=== PATIENT | female | born 1935 | race African-American/Black ===

== ENCOUNTER 2019-02-13 19:32 | Inpatient (IN) | payer MEDICARE, BC ==
[~2019-02-13] VITALS: Ht 160 cm; Wt 57.2 kg
--- NOTE | 2019-02-13 20:35 | NUR ---
Dr. Vail at bedside for MSE.
[2019-02-13] MEDS ORDERED: NITROFURANTOIN/NITROFURAN MAC 100 MG CAPSULE ONE (20:44)
[2019-02-13] MEDS ORDERED: NITROFURANTOIN/NITROFURAN MAC 100 MG CAPSULE PO ONE (20:45)
--- NOTE | 2019-02-13 20:48 | NUR ---
Pt medically cleared by Dr. Vail.
[2019-02-13] MEDS ORDERED: ALPHAGAN 0.2% EACHEYE (21:16)
[2019-02-13] MEDS ORDERED: PRED5DRO24 OP (21:16)
[2019-02-13] MEDS ORDERED: ASPI-605 PO (21:16)
[2019-02-13] MEDS ORDERED: CLOP75TA15 PO (21:16)
[2019-02-13] MEDS ORDERED: OLAN2.5T3 PO ×3 (21:16)
[2019-02-13] MEDS ORDERED: METO50TA7 PO (21:16)
[2019-02-13] MEDS ORDERED: ACET-2154 PO (21:16)
[2019-02-13] MEDS ORDERED: RANO500T3 PO (21:16)
[2019-02-13] MEDS ORDERED: TIMO5SOL11 OP (21:16)
--- NOTE | 2019-02-13 21:25 | NUR ---
Report given to Monae CISSE MHU.
--- NOTE | 2019-02-13 21:45 | NUR ---
Admitting Notes Patient received into care via lulu from ER with sister by her side. Patient is labile and confused, answers to name, but is unable to verbalize where she is, date, year, or [place] president. Patient unable to provide meaningful history, however, sister was able to provide medical and psychological history. Per sister, patient was diagnosed with dementia but has always been cooperative until patient became last year and dementia seemed to worsen. Patient is cooperative with nurse and refrigerator cabinetmaker with regards to changing from regular hospital gown into MHU gown, having diaper changed, having vital signs taken, and blood sugar tested. Patient was placed in bed, with 2 side rails up and locked, and bed alarm activated. Patient's BP is slightly elevated at 160/73, but this can be attributed to move from previous hospital to [facility] and subsequent move from ER to MHU room. Patient did not have any personal belongings when accepted to unit. Sister provided copy of Advanced Directive and states that she has power of pipe stem sawyer, of which she will provide copy. All safety and fall precaution measures are in place. Will continue to monitor patient throughout shift.
[2019-02-13] MEDS ORDERED: MAG HYDROX/AL HYDROX/SIMETH 30 ML LIQUID UDC PO PRN (22:15)
[2019-02-13] MEDS ORDERED: TEMAZEPAM 7.5 MG CAPSULE PO PRN (22:15)
[2019-02-13] MEDS ORDERED: MAGNESIUM HYDROXIDE 30 ML LIQUID UDC PO PRN (22:15)
[2019-02-13] MEDS ORDERED: ACETAMINOPHEN 325 MG TABLET PO PRN (22:15)
[2019-02-13] MEDS ORDERED: BLOOD SUGAR DIAGNOSTIC 1 EACH STRIP VI ONE (22:15)
--- NOTE | 2019-02-14 07:05 | NUR ---
Patient slept 4.30 hr after admitted to MHU with no complaints of pain or discomfort. Patient is labile and confused. Can remember important things about herself, sisters, and , but cannot recall information about her son or grandson. Patient was compliant with all aspects of care and all nursing needs were addressed promptly. Safety and fall precaution measures remain in place.
[2019-02-14 07:59] VITALS: BP 162/74
--- NOTE | 2019-02-14 08:00 | NUR ---
Sitting o gerichair, calm, eating breakfast
--- NOTE | 2019-02-14 11:00 | NUR ---
Ambulated, Participated with PT
[2019-02-14] MEDS: ASPIRIN EC 81 MG TABLET.DR PO SCH (16:08)
[2019-02-14] MEDS: METOPROLOL SUCCINATE XL 50 MG TAB.SR.24H PO SCH (16:09)
[2019-02-14] MEDS: LORAZEPAM 0.5 MG TABLET PO PRN ×2 (16:09→21:08)
--- NOTE | 2019-02-14 16:09 | NUR ---
Patient anxious, confuse. Ativan po given as ordered
[2019-02-14 16:10] VITALS: BP 170/67
[2019-02-14] MEDS: CLOPIDOGREL 75 MG TABLET PO SCH (16:10)
--- NOTE | 2019-02-14 16:36 | NUR ---
Initial discharge plan: Pt lives in her personal home with her two sons and a sister [Lida Marsh; [phone] and son Ronaldo [phone]] at [address],[place] [address]. Pts family is in agreement with this plan. SW will work with pt, pt family, and MD to form an appropriate discharge plan. SW will form a safe and proper discharge plan.
[2019-02-14] MEDS: RANOLAZINE 500 MG TAB.ER.12H PO SCH (16:45)
[2019-02-14] MEDS ORDERED: TIMOLOL MALEATE XE 0.5% OPHT 5 ML BOTTLE OP SCH (17:00)
[2019-02-14] MEDS: OLANZAPINE ZYDIS 5 MG TAB.RAPDIS PO SCH (18:17)
--- NOTE | 2019-02-14 18:54 | NUR ---
Eating dinner, with fair appetite
[2019-02-14] MEDS: DIVALPROEX 125 MG TABLET.DR PO SCH (20:04)
[2019-02-14] MEDS: NITROFURANTOIN/NITROFURAN MAC 100 MG CAPSULE PO SCH (20:04)
--- NOTE | 2019-02-14 20:30 | NUR ---
Assisted patient to restroom and attempted to have her urinate to be able to collect sample however patient declined to sit on the toilet and urinated on diaper.
[2019-02-14 21:00] VITALS: BP 145/61
--- NOTE | 2019-02-15 05:59 | NUR ---
Patient slept a total of 7.15 hours after prn ativan last night. Patient has been compliant with medications. Attended all needs. Ensured safety and comfort. No other untoward events noted.
[2019-02-15 07:30] VITALS: BP 136/54
[2019-02-15] MEDS: CLOPIDOGREL 75 MG TABLET PO SCH (08:25)
[2019-02-15] MEDS: NITROFURANTOIN/NITROFURAN MAC 100 MG CAPSULE PO SCH ×2 (08:25→20:10)
[2019-02-15] MEDS: DIVALPROEX 125 MG TABLET.DR PO SCH ×2 (08:25→20:10)
[2019-02-15] MEDS: ASPIRIN EC 81 MG TABLET.DR PO SCH (08:25)
[2019-02-15] MEDS: METOPROLOL SUCCINATE XL 50 MG TAB.SR.24H PO SCH (08:26)
[2019-02-15] MEDS: RANOLAZINE 500 MG TAB.ER.12H PO SCH ×2 (08:35→16:58)
[2019-02-15] MEDS ORDERED: TIMO5DRO18 EACHEYE (09:29)
--- NOTE | 2019-02-15 10:00 | NUR ---
UP ON THE CHAIR WITH MAX ASSIST OF TWO DUE TO THE FACT THAT PATIENT WAS RESISTING GETTING UP BUT IS COMFORTABLE NOW THAT SHE IS UP ASSISTED NEEDED NEEDED FREQUENT PROMPTS TO TAKE HER MEDICATIONS WILL CONTINUE TO OBSERVE.
[2019-02-15] MEDS: prednisoLONE ACET 1% OPHT DROP 5 ML BOTTLE EACHEYE SCH ×2 (11:49→20:10)
[2019-02-15] MEDS: BRIMONIDINE 0.2% OPHT DROP 10 ML BOTTLE EACHEYE SCH ×2 (11:50→16:59)
[2019-02-15] MEDS: TIMOLOL MALEATE 0.5% OPHT DROP 5 ML BOTTLE EACHEYE SCH ×2 (11:50→16:59)
[2019-02-15 15:18] VITALS: BP 144/70
[2019-02-15] MEDS: OLANZAPINE ZYDIS 5 MG TAB.RAPDIS PO SCH (16:58)
--- NOTE | 2019-02-15 17:37 | NUR ---
DR MAYA HERE AND SEEN PATIENT,PATIENTS FAMILIES SONS ETC HERE AND STATED EAGER TO TAKE HER HOME TODAY BUT DR MAYA STATED PATIENT IS NOT READY TO BE DISCHARGED TODAY MAY BE ON SUNDAY AND SO THEY ARE ACCEPTING THIS DECISION AT THIS TIME.PATIENT REMAINS CONFUSED AND DISORIENTED UNAWARE OF DESTINATION OR NEEDS DIFFICULTY GIVING HER MEDICATIONS ORDERED WILL CONTINUE TO PROVIDE SAFE AND THERAPEUTIC ENVIRONMENT AT ALL TIMES.
--- NOTE | 2019-02-15 18:30 | NUR ---
ASSISTED BACK INTO BED PATIENT IS CONFUSED AND DISORIENTED SOMEWHAT SLEEPY INCONTINENT OF URINE WITH TATIANA CARE MADE COMFORTABLE WILL CONTINUE TO OBSERVE.
[2019-02-15 20:37] VITALS: BP 129/57
[2019-02-16 07:30] VITALS: BP 137/62
[2019-02-16 08:38] LABS: *BLOOD, URINE NEGATIVE (NEGATIVE); *CLARITY,URINE SLIGHTLY CLOUDY (CLEAR); *COLOR,URINE DARK YELLOW (YELLOW); *KETONES,URINE 1+ (NEGATIVE); LEUKOCYTE ESTERASE ,URINE NEGATIVE (NEGATIVE); NITRITE, URINE NEGATIVE (NEGATIVE); UGLUCOSE NEGATIVE (NEGATIVE)
[2019-02-16] MEDS: CLOPIDOGREL 75 MG TABLET PO SCH (08:48)
[2019-02-16] MEDS: ASPIRIN EC 81 MG TABLET.DR PO SCH (08:48)
[2019-02-16] MEDS: DIVALPROEX 125 MG TABLET.DR PO SCH (08:48)
[2019-02-16] MEDS: NITROFURANTOIN/NITROFURAN MAC 100 MG CAPSULE PO SCH (08:48)
[2019-02-16] MEDS: prednisoLONE ACET 1% OPHT DROP 5 ML BOTTLE EACHEYE SCH (08:49)
[2019-02-16] MEDS: RANOLAZINE 500 MG TAB.ER.12H PO SCH (08:49)
[2019-02-16] MEDS: TIMOLOL MALEATE 0.5% OPHT DROP 5 ML BOTTLE EACHEYE SCH (08:49)
[2019-02-16] MEDS: BRIMONIDINE 0.2% OPHT DROP 10 ML BOTTLE EACHEYE SCH (08:50)
[2019-02-16] MEDS: METOPROLOL SUCCINATE XL 50 MG TAB.SR.24H PO SCH (09:06)
[2019-02-16 09:49] LABS: *BILIRUBIN,URIN 1+ (NEGATIVE)
[2019-02-16 09:54] LABS: BACTERIA,URINE FEW /HPF (NONE SEEN); RBC,URINE 0-3 /HPF (0-3); SQUAMOUS EPITHELIAL CELL,UR FEW /HPF (NONE SEEN); WBC,URINE 20-50 /HPF (0-3)
--- NOTE | 2019-02-16 10:20 | NUR ---
NOTIFIED DR. MAYA THAT THE HOLD WILL END TODAY AT 1650 AND THAT THE FAMILY WOULD LIKE TO SPEAK TO THE DOCTOR. STATED THAT HE WILL BE IN THE HOSPITAL TO SEE THE PATIENT BEFORE THE HOLD WILL END.
[2019-02-16 16:12] VITALS: BP 137/67
[2019-02-16] MEDS ORDERED: chlorproMAZINE 50 MG/2 ML AMPUL IM ONE (17:15)
[2019-02-16] MEDS ORDERED: LORAZEPAM 2 MG/1 ML VIAL IM ONE (17:15)
--- NOTE | 2019-02-16 17:19 | NUR ---
PATIENT DISCHARGED HOME VIA PRIVATE VEHICLE BY TABITHA MYLES, NO COMPLAINTS OF PAIN, NO SIGNS OF DISTRESS NOTED, DISCHARGE INSTRUCTIONS GIVEN, EXIT CARE PROVIDED, MD MAYA APPROVED PATIENT ORDER TO DISCHARGE HOME WITH FAMILY, NO SKIN ISSUES NOTED, EDUCATION ON MEDICATIONS GIVEN, PATIENT HAD NO BELONGINGS, ADVISED TO FOLLOW UP WITH PSYCHIATRIST IN ONE MONTH BY MD MAYA, CONTINUE MEDICATIONS PRESCRIBED, RETURN HOME WITH FAMILY
== END 2019-02-16 17:30 | disposition home or self-care (01) | DRG 885 ==
LOC: ER 19:35 → GPS 21:28
PROVIDERS: ADMIT Psychiatry & Neurology Psychiatry; ATTEND Nurse Practitioner Acute Care
DX: F39 Unspecified mood [affective] disorder (principal); N39.0 Urinary tract infection, site not specified; I25.10 Atherosclerotic heart disease of native coronary artery without angina pectoris; Z79.02 Long term (current) use of antithrombotics/antiplatelets; F03.90 Unspecified dementia, unspecified severity, without behavioral disturbance, psychotic disturbance, mood disturbance, and anxiety; Z86.73 Personal history of transient ischemic attack (TIA), and cerebral infarction without residual deficits
CPT/HCPCS: 36415; 87086; 93005; A4663; J2650

== ENCOUNTER 2019-05-02 13:20 | Inpatient (IN) | payer MEDICARE, BC ==
[~2019-05-02] VITALS: Ht 157.5 cm; Wt 54.4 kg
[~2019-05-02 13:20] MED LIST: ACET-2154 PO; ALPHAGAN 0.2% EACHEYE; ASPI-605 PO; CLOP75TA15 PO; METO50TA7 PO; PRED5DRO24 OP; RANO500T3 PO; TIMO5DRO18 EACHEYE
--- NOTE | 2019-05-02 13:24 | NUR ---
PT IS IN ROOM #2B. DR NIEVES EVALUATED THE PT.
[2019-05-02] MEDS ORDERED: OLAN2.5T3 PO (13:43)
[2019-05-02] MEDS ORDERED: DORZ10DR OP (13:43)
[2019-05-02] MEDS ORDERED: NIFE60TA83 PO (13:43)
--- NOTE | 2019-05-02 15:31 | NUR ---
CRISIS CONCESSION WORKER ART EVALUATED THE PT. PT WAS ACCEPTED BY DR DIANA TO [facility] . PT IS ON HOLD A GRAVELY DISABLED. REPORT WAS GIVEN TO KENISHA RN. PT WAS TRANSFERED TO [facility] ROOM #140.
[2019-05-02 16:00] VITALS: BP 129/54
[2019-05-02] MEDS ORDERED: MAGNESIUM HYDROXIDE 30 ML LIQUID UDC PO PRN (16:15)
[2019-05-02] MEDS ORDERED: MAG HYDROX/AL HYDROX/SIMETH 30 ML LIQUID UDC PO PRN (16:15)
[2019-05-02] MEDS ORDERED: LORAZEPAM 1 MG TABLET PO PRN (16:15)
[2019-05-02] MEDS ORDERED: BLOOD SUGAR DIAGNOSTIC 1 EACH STRIP VI ONE (16:15)
[2019-05-02] MEDS: TIMOLOL MALEATE 0.5% OPHT DROP 5 ML BOTTLE EACHEYE SCH ×2 (17:00→18:26)
[2019-05-02] MEDS: RANOLAZINE 500 MG TAB.ER.12H PO SCH (18:26)
[2019-05-02 20:51] VITALS: BP 118/61
[2019-05-03] MEDS: TEMAZEPAM 7.5 MG CAPSULE PO PRN (01:19)
[2019-05-03 07:26] LABS: BASOPHILS # (AUTO) 0.1 K/uL (0.0-8.0); EOSINOPHILS # (AUTO) 0.3 K/uL (0.0-0.7); EOSINOPHILS % (AUTO) 4.7 % (0.0-7.0); HEMATOCRIT 37.1 % (31.2-41.9); HEMOGLOBIN 12.2 g/dL (10.9-14.3); LYMPHOCYTES # (AUTO) 1.8 K/uL (20.0-40.0); LYMPHOCYTES % (AUTO) 30.8 % (20.5-51.5); MEAN CORPUSCULAR HEMOGLOBIN 30.1 uug (24.7-32.8); MEAN CORPUSCULAR HGB CONC 33 g/dL (32.3-35.6); MONOCYTES # (AUTO) 0.6 K/uL (2.0-10.0); MONOCYTES % (AUTO) 9.7 % (0.0-11.0); NEUTROPHILS # (AUTO) 3.2 K/uL (1.8-8.9); NEUTROPHILS % (AUTO) 53.8 % (38.5-71.5); PLATELET COUNT (AUTO) 318 K/uL (179-408); RED BLOOD CELL COUNT(AUTO) 4.04 MIL/uL (3.63-4.92)
[2019-05-03 07:30] LABS: THYROID STIMULATING HORMONE 1.64 mIU/mL (0.358-3.740)
[2019-05-03 07:52] VITALS: BP 140/61
[2019-05-03 07:52] LABS: CREATININE 0.9 mg/dL (0.6-1.3); POTASSIUM 3.8 mmol/L (3.5-5.1)
[2019-05-03 07:59] LABS: BILIRUBIN,TOTAL 0.5 mg/dL (0.2-1.0); MAGNESIUM 2.2 mg/dL (1.8-2.4); PHOSPHOROUS 3.5 mg/dL (2.5-4.9); TOTAL PROTEIN, SERUM 6.6 g/dL (6.4-8.2)
[2019-05-03] MEDS: CLOPIDOGREL 75 MG TABLET PO SCH (08:36)
[2019-05-03] MEDS: DORZOLAMIDE 2% OPHT DROP 10 ML BOTTLE EACHEYE SCH (08:37)
[2019-05-03] MEDS: ASPIRIN EC 81 MG TABLET.DR PO SCH (08:37)
[2019-05-03] MEDS: METOPROLOL SUCCINATE XL 50 MG TAB.SR.24H PO SCH (08:37)
[2019-05-03] MEDS: RANOLAZINE 500 MG TAB.ER.12H PO SCH ×2 (08:38→16:22)
[2019-05-03] MEDS: TIMOLOL MALEATE 0.5% OPHT DROP 5 ML BOTTLE EACHEYE SCH ×2 (08:38→16:23)
[2019-05-03] MEDS: NIFEdipine XL 60 MG TABSR PO SCH (08:38)
--- NOTE | 2019-05-03 10:52 | NUR ---
PT WAS STANDING BY THE NURSES STATION, WHEN SHE SUDDENLY APPEARED TO LOSE HER BALANCE AND COORDINATION. PT NOTED BY STAFF TO ALMOST FALL, CAUGHT BY TRAFFIC ENGINEER AND SAT DOWN ON CHAIR. PT BECAME SLIGHTLY UNRESPONSIVE, BUT REGAINED RESPONSIVENESS IMMEDIATELY AFTER EPISODE. RAPID RESPONSE CALLED AT THIS TIME. BS TAKEN OF 186. V/S UNSTABLE AT THIS TIME. BP 61/40 O2 SAT 99% PULSE 61. NURSING CONCERT MANAGER, LAB, RESPIRATORY THERAPY ARRIVED.
--- NOTE | 2019-05-03 11:00 | NUR ---
CALLED AND SPOKE TO Kat TATUM N.P. ORDERED TO TRANSFER TO EMERGENCY ROOM FOR EVALUATION. BP AT THIS TIME: 95/56.
[2019-05-03] MEDS ORDERED: ZIPR20VI IM (11:25)
[2019-05-03] MEDS ORDERED: ASPI-605 PO (11:25)
[2019-05-03] MEDS ORDERED: OLAN5TAB3 PO (11:25)
--- NOTE | 2019-05-03 11:25 | NUR ---
called and left message to patient Son , waiting for reply
--- NOTE | 2019-05-03 11:41 | NUR ---
PT ARRIVED TO UNIT AT THIS TIME ON GURNEY ACCOMPANIED BY ER NURSE.
--- NOTE | 2019-05-03 12:06 | NUR ---
PATIENT RETURNED TO UNIT, WITH VS bp 137/58, P56, R17 PO2 AT 99%, PATIENT ALERT, DENIES PAIN, CALM AND COOPERATIVE , CALLED AND LEFT MESSAGE TO PATIENT SON WAITING FOR REPLY, CALLED AND SPOKE WITH AP
[2019-05-03] MEDS ORDERED: LORAZEPAM 1 MG TABLET PO PRN (12:30)
[2019-05-03 16:57] VITALS: BP 118/50
--- NOTE | 2019-05-03 18:26 | NUR ---
patient remain calm and cooperative , visited by family
[2019-05-03] MEDS: ACETAMINOPHEN 325 MG TABLET PO PRN (18:45)
[2019-05-03 20:07] VITALS: BP 101/60
[2019-05-03] MEDS: OLANZAPINE 2.5 MG TABLET PO SCH (20:12)
[2019-05-03] MEDS: prednisoLONE ACET 1% OPHT DROP 5 ML BOTTLE EACHEYE SCH (20:13)
[2019-05-04 07:48] VITALS: BP 106/70
[2019-05-04] MEDS: RANOLAZINE 500 MG TAB.ER.12H PO SCH ×2 (08:29→16:20)
[2019-05-04] MEDS: CLOPIDOGREL 75 MG TABLET PO SCH (08:29)
[2019-05-04] MEDS: METOPROLOL SUCCINATE XL 50 MG TAB.SR.24H PO SCH (08:30)
[2019-05-04] MEDS: prednisoLONE ACET 1% OPHT DROP 5 ML BOTTLE EACHEYE SCH ×2 (08:30→21:04)
[2019-05-04] MEDS: ASPIRIN EC 81 MG TABLET.DR PO SCH (08:30)
[2019-05-04] MEDS: DORZOLAMIDE 2% OPHT DROP 10 ML BOTTLE EACHEYE SCH (08:30)
[2019-05-04] MEDS: TIMOLOL MALEATE 0.5% OPHT DROP 5 ML BOTTLE EACHEYE SCH ×2 (08:30→16:20)
[2019-05-04] MEDS: NIFEdipine XL 60 MG TABSR PO SCH (08:30)
[2019-05-04 14:32] LABS: BASOPHILS % (AUTO) 0.4 % (0.0-2.0); EOSINOPHILS # (AUTO) 0.1 K/uL (0.0-0.7); EOSINOPHILS % (AUTO) 1.1 % (0.0-7.0); HEMATOCRIT 39.9 % (31.2-41.9); HEMOGLOBIN 13.1 g/dL (10.9-14.3); LYMPHOCYTES # (AUTO) 1.2 K/uL (20.0-40.0); LYMPHOCYTES % (AUTO) 12.5 % (20.5-51.5); MEAN CORPUSCULAR HEMOGLOBIN 30.7 uug (24.7-32.8); MEAN CORPUSCULAR HGB CONC 33 g/dL (32.3-35.6); MEAN CORPUSCULAR VOLUME 93.4 fL (75.5-95.3); MONOCYTES # (AUTO) 0.6 K/uL (2.0-10.0); MONOCYTES % (AUTO) 6.5 % (0.0-11.0); NEUTROPHILS # (AUTO) 7.8 K/uL (1.8-8.9); NEUTROPHILS % (AUTO) 79.5 % (38.5-71.5); PLATELET COUNT (AUTO) 294 K/uL (179-408); RED BLOOD CELL COUNT(AUTO) 4.28 MIL/uL (3.63-4.92); WHITE BLOOD COUNT (AUTO) 9.8 K/uL (3.8-11.8)
[2019-05-04 14:39] LABS: BILIRUBIN,TOTAL 0.6 mg/dL (0.2-1.0); CREATININE 0.9 mg/dL (0.6-1.3); MAGNESIUM 2.1 mg/dL (1.8-2.4); PHOSPHOROUS 3.2 mg/dL (2.5-4.9); POTASSIUM 3.8 mmol/L (3.5-5.1); TOTAL PROTEIN, SERUM 7.3 g/dL (6.4-8.2)
[2019-05-04] MEDS: ACETAMINOPHEN 325 MG TABLET PO PRN (15:58)
[2019-05-04 16:46] VITALS: BP 160/59
[2019-05-04 20:33] VITALS: BP 140/55
[2019-05-04] MEDS: OLANZAPINE 2.5 MG TABLET PO SCH (21:00)
[2019-05-04 23:00] VITALS: BP 134/56
[2019-05-05 05:00] VITALS: BP 117/60
[2019-05-05 07:30] VITALS: BP 128/52
--- NOTE | 2019-05-05 07:30 | NUR ---
patient slept for approx. 8 hrs through the night. v/s stable throughout the shift. Patient in no distress. will continue to monitor.
[2019-05-05] MEDS: METOPROLOL SUCCINATE XL 50 MG TAB.SR.24H PO SCH (08:53)
[2019-05-05] MEDS: NIFEdipine XL 60 MG TABSR PO SCH (08:54)
[2019-05-05] MEDS: CLOPIDOGREL 75 MG TABLET PO SCH (09:00)
[2019-05-05] MEDS: DORZOLAMIDE 2% OPHT DROP 10 ML BOTTLE EACHEYE SCH (09:00)
[2019-05-05] MEDS: RANOLAZINE 500 MG TAB.ER.12H PO SCH ×2 (09:00→16:40)
[2019-05-05] MEDS: TIMOLOL MALEATE 0.5% OPHT DROP 5 ML BOTTLE EACHEYE SCH ×2 (09:00→16:40)
[2019-05-05] MEDS: ASPIRIN EC 81 MG TABLET.DR PO SCH (09:00)
[2019-05-05] MEDS: prednisoLONE ACET 1% OPHT DROP 5 ML BOTTLE EACHEYE SCH ×2 (09:00→20:20)
--- NOTE | 2019-05-05 09:37 | NUR ---
Received patient asleep in her assigned bed. Patient is arousable to noise and light touch. Patient is oriented to person only, she is unable to identify time, date, and place. Patient is unable to maintain a linear and logical conversation. Bed is low and in locked position with bed alarm on. Patient is oriented to time, date, and place, and encouraged to communicate her needs to staff. patient requires assistance with ADL's and self care. Will continue to monitor.
[2019-05-05] MEDS: ACETAMINOPHEN 325 MG TABLET PO PRN (11:19)
--- NOTE | 2019-05-05 13:23 | NUR ---
Social Work Note/Initial Discharge: Patient currently resides at [address] [place] [address], [place] [id number]; ([phone]). Patient contacted Concepcion Gonzalez ([phone]) to gather collateral, but was unavailable. tray service worker will work with the patient and the MD regarding appropriate discharge planning. tray service worker will form a safe and proper discharge.
--- NOTE | 2019-05-05 13:24 | NUR ---
Social Work Note/Family Contact: bake room worker contacted Carlos ([phone]) and left a voicemail in regard to patient regarding treatment plan and discharge plan. This inspector automatic typewriter needs to gather more collateral in regard to patient.
--- NOTE | 2019-05-05 14:07 | NUR ---
Social Work Note/Family Contact: feed elevator worker contacted Carlos ([phone]) and attempted to call second time and went to voicemail.
--- NOTE | 2019-05-05 14:23 | NUR ---
Social Work Note/Family Contact: making line worker spoke with patients son Piter ([phone]) and provided a cellphone number ([phone]). 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 Per Piter, he stated that his brother is the POA of patient, but does not live locally. Per Piter, he stated that patients was Carlos and he . Per Piter, he stated that patient is difficult and is easily angered.
--- NOTE | 2019-05-05 14:23 | NUR ---
Social Work Note/Family Contact: boat worker contacted Carlos ([phone]) and attempted to call third time and went to voicemail.
[2019-05-05 16:08] VITALS: BP 107/56
[2019-05-05 18:49] LABS: *BILIRUBIN,URIN NEGATIVE (NEGATIVE); *BLOOD, URINE NEGATIVE (NEGATIVE); *CLARITY,URINE SLIGHTLY CLOUDY (CLEAR); *COLOR,URINE DARK YELLOW (YELLOW); *KETONES,URINE NEGATIVE (NEGATIVE); *UROBILINOGEN,URINE 0.2 E.U./dl (NORMAL); LEUKOCYTE ESTERASE ,URINE 1+ (NEGATIVE); NITRITE, URINE NEGATIVE (NEGATIVE); PH,URINE 7.5 (5.0-8.0); UGLUCOSE NEGATIVE (NEGATIVE)
[2019-05-05 19:29] LABS: RBC,URINE 0-3 /HPF (0-3)
[2019-05-05 19:30] LABS: BACTERIA,URINE MODERATE /HPF (NONE SEEN); SQUAMOUS EPITHELIAL CELL,UR FEW /HPF (NONE SEEN); TRIPLE PHOSPHATE CRYSTAL,UR MODERATE /HPF (NONE SEEN); URINE AMORPHOUS PHOSPHATES MODERATE /HPF
--- NOTE | 2019-05-05 19:37 | NUR ---
Dr Lazcano paged regarding positive UA.
[2019-05-05] MEDS: OLANZAPINE 2.5 MG TABLET PO SCH (20:20)
[2019-05-05 20:27] VITALS: BP 126/62
[2019-05-06] MEDS: ACETAMINOPHEN 325 MG TABLET PO PRN (06:18)
[2019-05-06 07:30] VITALS: BP 119/60
--- NOTE | 2019-05-06 08:16 | NUR ---
Social Work Note/Family Contact: harvest worker spoke with son Piter ([phone]) and addressed discharge planning. Per Piter, he perfers patient to come back home upon discharge and stated that they have a caregiver and that he is involved in her care. This repairer typewriter gave SNF options, but he refused.
[2019-05-06] MEDS: ASPIRIN EC 81 MG TABLET.DR PO SCH (08:19)
[2019-05-06] MEDS: CLOPIDOGREL 75 MG TABLET PO SCH (08:19)
[2019-05-06] MEDS: NITROFURANTOIN/NITROFURAN MAC 100 MG CAPSULE PO SCH ×2 (08:19→20:43)
[2019-05-06] MEDS: RANOLAZINE 500 MG TAB.ER.12H PO SCH ×2 (08:20→16:40)
[2019-05-06] MEDS: DORZOLAMIDE 2% OPHT DROP 10 ML BOTTLE EACHEYE SCH (08:22)
[2019-05-06] MEDS: TIMOLOL MALEATE 0.5% OPHT DROP 5 ML BOTTLE EACHEYE SCH ×2 (08:22→16:41)
[2019-05-06] MEDS: prednisoLONE ACET 1% OPHT DROP 5 ML BOTTLE EACHEYE SCH ×2 (08:22→21:53)
[2019-05-06] MEDS: NIFEdipine XL 60 MG TABSR PO SCH (08:24)
[2019-05-06] MEDS: METOPROLOL SUCCINATE XL 50 MG TAB.SR.24H PO SCH (08:24)
[2019-05-06 15:50] VITALS: BP 119/52
--- NOTE | 2019-05-06 16:07 | NUR ---
Social Work Note/Individual Therapy: social worker masters met with patient to provide brief counseling. Patient was in a alverto chair and presented with confusion. social worker masters had a difficult time communicating with patient at the moment. This freelance writer will follow up.
--- NOTE | 2019-05-06 16:22 | NUR ---
Social Work Note/Coordination of Care: grounds worker spoke with officer of the aditya Earl from [facility] [address] [place] [address] ([phone]) and scheduled an appointment for patient for May 16 at 8AM for an intake psychiatrist evaluation and will be assigned an psychiatrist after evaluation.
[2019-05-06 20:13] VITALS: BP 134/51
[2019-05-06] MEDS: OLANZAPINE 2.5 MG TABLET PO SCH (20:42)
--- NOTE | 2019-05-06 22:00 | NUR ---
received to care, up in alverto chair, appearing confused, but pleasant when approached. compliant with medications and staff direction. as of 2199, she appears to be asleep, in bed. no distress noted. will continue to monitor closely.
--- NOTE | 2019-05-07 06:00 | NUR ---
slept 6.25 hours, total. continues to sleep. no distress noted.
[2019-05-07 07:30] VITALS: BP 154/61
[2019-05-07] MEDS: NITROFURANTOIN/NITROFURAN MAC 100 MG CAPSULE PO SCH ×2 (09:30→20:51)
[2019-05-07] MEDS: ASPIRIN EC 81 MG TABLET.DR PO SCH (09:30)
[2019-05-07] MEDS: CLOPIDOGREL 75 MG TABLET PO SCH (09:30)
[2019-05-07] MEDS: NIFEdipine XL 60 MG TABSR PO SCH (09:31)
[2019-05-07] MEDS: METOPROLOL SUCCINATE XL 50 MG TAB.SR.24H PO SCH (09:31)
[2019-05-07] MEDS: RANOLAZINE 500 MG TAB.ER.12H PO SCH ×2 (09:31→16:33)
[2019-05-07] MEDS: DORZOLAMIDE 2% OPHT DROP 10 ML BOTTLE EACHEYE SCH (09:32)
[2019-05-07] MEDS: TIMOLOL MALEATE 0.5% OPHT DROP 5 ML BOTTLE EACHEYE SCH ×2 (09:32→16:32)
[2019-05-07] MEDS: prednisoLONE ACET 1% OPHT DROP 5 ML BOTTLE EACHEYE SCH ×2 (09:32→20:52)
--- NOTE | 2019-05-07 12:12 | NUR ---
Social Work Note/Family Contact: platform worker called patients son Piter ([phone]) and left a voicemail in regard to patients status. This underwriter mortgage loan was informed that patients other son visited patient last night and wanted to speak to this underwriter mortgage loan. This underwriter mortgage loan contacted Piter to transfer this writers phone number for the brother to call.
[2019-05-07 16:00] VITALS: BP 109/77
[2019-05-07] MEDS: OLANZAPINE 2.5 MG TABLET PO SCH ×2 (16:33→16:47)
[2019-05-07 20:08] VITALS: BP 118/56
--- NOTE | 2019-05-07 22:00 | NUR ---
received to care, lying in bed, appearing confused, but pleasant upon approach. compliant with medications and staff direction. as of 2199, she appears to be asleep, in bed. no distress noted. will continue to monitor closely.
[2019-05-08] MEDS: TEMAZEPAM 7.5 MG CAPSULE PO PRN ×2 (00:14→21:06)
[2019-05-08] MEDS: ACETAMINOPHEN 325 MG TABLET PO PRN ×2 (00:14→21:06)
--- NOTE | 2019-05-08 00:15 | NUR ---
pt is now awake, attempting to get out of bed. appears very confused. she was taken to the bathroom, but remains agitated, so she given PRN restoril, and was placed in the [facility], for safety.
--- NOTE | 2019-05-08 00:30 | NUR ---
appears to be asleep. no distress noted.
--- NOTE | 2019-05-08 06:00 | NUR ---
slept 5.0 hours, total. continues to sleep. no distress noted.
[2019-05-08 07:30] VITALS: BP 106/49
--- NOTE | 2019-05-08 08:00 | NUR ---
RECEIVED PATIENT UP IN CHAIR CALM AND DIRECTABLE. NO SCREAMING OR YELLING CONTINUE TO PROVIDE A SAFE ENVIRONMENT
[2019-05-08] MEDS: prednisoLONE ACET 1% OPHT DROP 5 ML BOTTLE EACHEYE SCH ×2 (09:52→21:03)
[2019-05-08] MEDS: ASPIRIN EC 81 MG TABLET.DR PO SCH (09:53)
[2019-05-08] MEDS: TIMOLOL MALEATE 0.5% OPHT DROP 5 ML BOTTLE EACHEYE SCH ×2 (09:53→18:22)
[2019-05-08] MEDS: NITROFURANTOIN/NITROFURAN MAC 100 MG CAPSULE PO SCH ×2 (09:53→21:03)
[2019-05-08] MEDS: RANOLAZINE 500 MG TAB.ER.12H PO SCH ×2 (09:53→18:23)
[2019-05-08] MEDS: DORZOLAMIDE 2% OPHT DROP 10 ML BOTTLE EACHEYE SCH (09:53)
[2019-05-08] MEDS: CLOPIDOGREL 75 MG TABLET PO SCH (09:54)
[2019-05-08] MEDS: NIFEdipine XL 60 MG TABSR PO SCH (09:54)
[2019-05-08] MEDS: OLANZAPINE 2.5 MG TABLET PO SCH ×2 (09:54→18:22)
[2019-05-08] MEDS: METOPROLOL SUCCINATE XL 50 MG TAB.SR.24H PO SCH (09:55)
--- NOTE | 2019-05-08 11:30 | NUR ---
Social Work Note/APS Report: layup worker filled an APS report through [facility] for wellness check on patient at home for safety upon discharge (Intake ID [id number]).
--- NOTE | 2019-05-08 12:20 | NUR ---
Social Work Note/PC Hearing Notification: animal care service worker contacted patients son Piter, ([phone]) and notified patients probable cause of hearing today. This scenario writer left a voicemail.
--- NOTE | 2019-05-08 12:58 | NUR ---
Social Work Note/Family Contact: second time worker spoke to patients son Boogie ([phone]) who left a voicemail stating that he will lemon picker patient today. second time worker called him back and discussed patients discharge plan. second time worker educated Boogie some education regarding the hold. Per Boogie, he was frustrated and agitated that his mother will be at the unit for a quit sometime. second time worker calmed Boogie down. second time worker stated that this functional tester typewriters has informed the brother Piter as well.
--- NOTE | 2019-05-08 13:04 | NUR ---
Social Work Note/Coordination of Care: kettle worker contacted patients primary doctor office ([phone]) to schedule an appointment with but was unable to get a hold of the office.
[2019-05-08 16:22] VITALS: BP 112/48
--- NOTE | 2019-05-08 18:32 | NUR ---
Gps?lvnAsked Son Ronaldo about immunization follow up, per son pt. received Flu vaccine at [facility] on 2018, Pneumonia vaccine not sure when per son.
[2019-05-08 20:17] VITALS: BP 116/53
--- NOTE | 2019-05-08 22:00 | NUR ---
received to care, up in alverto chair, appearing confused, talking to self. compliant with medications, snacks, and staff direction. PRN restoril was given for insomnia, at 2105. as of 2199, she remains awake. attempted to place her in bed, but she tried to get out of bed, and her gait is unsteady. remains in alverto chair, for safety, at nurses station. will continue to monitor closely.
[2019-05-09] MEDS: LORAZEPAM 0.5 MG TABLET PO PRN (01:16)
--- NOTE | 2019-05-09 01:16 | NUR ---
remains awake, and restless. up in alverto chair. PRN ativan was given, for anxiety.
--- NOTE | 2019-05-09 02:00 | NUR ---
Social Work Note: tube worker notified Dr. Choi to contact patients son Boogie ([phone]). Per Dr. Choi he was unable to reach patient and left a voicemail.
--- NOTE | 2019-05-09 06:00 | NUR ---
slept 30 minutes total, for the night. was assisted to the bathroom, and placed in bed, around 0530. as of now, she is asleep. no distress noted.
[2019-05-09 07:50] VITALS: BP 116/52
--- NOTE | 2019-05-09 08:24 | NUR ---
Social Work Note/Coordination of Care: viscose department worker contacted patients primary doctor office ([phone]) to schedule an appointment with but was unable to get a hold of the office and left a voicemail.
[2019-05-09] MEDS: OLANZAPINE 2.5 MG TABLET PO SCH (09:47)
[2019-05-09] MEDS: RANOLAZINE 500 MG TAB.ER.12H PO SCH ×2 (09:47→17:13)
[2019-05-09] MEDS: NITROFURANTOIN/NITROFURAN MAC 100 MG CAPSULE PO SCH ×2 (09:47→22:45)
[2019-05-09] MEDS: ASPIRIN EC 81 MG TABLET.DR PO SCH (09:47)
[2019-05-09] MEDS: METOPROLOL SUCCINATE XL 50 MG TAB.SR.24H PO SCH (09:48)
[2019-05-09] MEDS: CLOPIDOGREL 75 MG TABLET PO SCH (09:48)
[2019-05-09] MEDS: NIFEdipine XL 60 MG TABSR PO SCH (09:49)
[2019-05-09] MEDS: TIMOLOL MALEATE 0.5% OPHT DROP 5 ML BOTTLE EACHEYE SCH ×2 (09:49→17:13)
[2019-05-09] MEDS: DORZOLAMIDE 2% OPHT DROP 10 ML BOTTLE EACHEYE SCH (09:50)
[2019-05-09] MEDS: prednisoLONE ACET 1% OPHT DROP 5 ML BOTTLE EACHEYE SCH ×2 (09:50→22:31)
--- NOTE | 2019-05-09 13:00 | NUR ---
Gps/Space Technologist- Sleeping most of the morning , on her side side. Awakened for lunch. Patient was inc. on urine, good rina-care was rendered. Assisted to her alverto-chair, w/ slight difficulty standing upright . B/P 137/66 HR 71 02 sat. 95%, resp. 16, no resp. distress. Speech slightly garbled able to ray her name. Remains appeared drowsy but arousable.
--- NOTE | 2019-05-09 13:58 | NUR ---
Social Work Note/Coordination of Care: groundskeeping maintenance worker contacted patients MD Calles and spoke to Ade who scheduled an appointment for May 19 at 2:15PM.
--- NOTE | 2019-05-09 13:59 | NUR ---
Social Work Note/Family Contact: machine operator farmworker received a phone call from patients son Boogie ([phone]) who was furious. Per Boogie, he stated that the family preservation caseworker department showed up to his house and was accusatory towards this technical document writer that she made the APS report. Per Boogie, he stated that her mother is not getting the proper care at the facility. This technical document writer informed that his mother is under good care and had to education Boogie that patient is in the mental health unit. machine operator farmworker informed PALOMO Sanon.
[2019-05-09 16:21] VITALS: BP 114/55
--- NOTE | 2019-05-09 17:35 | NUR ---
Gps/Agricultural Aircraft Pilot- Remains up on her alverto-chair, sleepy, but arousable, had ensure supplements.
[2019-05-09 20:00] VITALS: BP 134/54
--- NOTE | 2019-05-09 20:00 | NUR ---
PATIENT RECEIVED INTO CARE FROM U VIA NIKOS-CHAIR. PATIENT HAS 1:1 SITTER AT BEDSIDE. PATIENT HAS NO COMPLAINTS OF PAIN OR DISCOMFORT AT THIS TIME AND THERE ARE NO SIGNS/SYMPTOMS OF ACUTE DISTRESS OR DISCOMFORT NOTED OR OBSERVED BY NURSE. ALL SAFETY AND FALL PRECAUTION MEASURES ARE IN PLACE. PERSONAL ITEMS ARE WITHIN REACH AT ALL TIMES. WILL CONTINUE TO MONITOR AND ASSES.
[2019-05-09] MEDS: TEMAZEPAM 7.5 MG CAPSULE PO PRN (22:31)
[2019-05-09] MEDS: OLANZAPINE 5 MG TABLET PO SCH (22:31)
[2019-05-09] MEDS ORDERED: NITROFURANTOIN/NITROFURAN MAC 100 MG CAPSULE ONE (22:37)
--- NOTE | 2019-05-10 06:12 | NUR ---
Pt slept 8 hours
--- NOTE | 2019-05-10 08:00 | NUR ---
PATIENT HAS 1:1 SITTER AT BEDSIDE. PATIENT HAS NO COMPLAINTS OF PAIN OR DISCOMFORT AT THIS TIME AND THERE ARE NO SIGNS/SYMPTOMS OF ACUTE DISTRESS OR DISCOMFORT NOTED OR OBSERVED BY NURSE. PT DENIES SI AT THIS TIME. ALL SAFETY AND FALL PRECAUTION MEASURES ARE IN PLACE. WILL CONTINUE TO MONITOR AND ASSES.
[2019-05-10] MEDS: NITROFURANTOIN/NITROFURAN MAC 100 MG CAPSULE PO SCH ×2 (10:17→20:59)
[2019-05-10] MEDS: RANOLAZINE 500 MG TAB.ER.12H PO SCH ×2 (10:18→17:56)
[2019-05-10] MEDS: NIFEdipine XL 60 MG TABSR PO SCH (10:18)
[2019-05-10] MEDS: CLOPIDOGREL 75 MG TABLET PO SCH (10:20)
[2019-05-10] MEDS: ASPIRIN EC 81 MG TABLET.DR PO SCH (10:20)
[2019-05-10] MEDS: METOPROLOL SUCCINATE XL 50 MG TAB.SR.24H PO SCH (10:20)
[2019-05-10] MEDS: TIMOLOL MALEATE 0.5% OPHT DROP 5 ML BOTTLE EACHEYE SCH ×2 (10:21→17:56)
[2019-05-10] MEDS: prednisoLONE ACET 1% OPHT DROP 5 ML BOTTLE EACHEYE SCH ×2 (10:21→21:00)
[2019-05-10] MEDS: DORZOLAMIDE 2% OPHT DROP 10 ML BOTTLE EACHEYE SCH (10:21)
[2019-05-10] MEDS: OLANZAPINE 2.5 MG TABLET PO SCH (10:22)
[2019-05-10 11:00] VITALS: BP 142/64
[2019-05-10 16:54] VITALS: BP 140/70
--- NOTE | 2019-05-10 18:00 | NUR ---
PATIENT HAS 1:1 SITTER AT BEDSIDE. PT IS MEDICATION AND DIET COMPLIANT. PATIENT HAS NO COMPLAINTS OF PAIN OR DISCOMFORT AT THIS TIME AND THERE ARE NO SIGNS/SYMPTOMS OF ACUTE DISTRESS OR DISCOMFORT NOTED OR OBSERVED BY NURSE. PT DENIES SI AT THIS TIME. ALL SAFETY AND FALL PRECAUTION MEASURES ARE IN PLACE. WILL ENDORSE TO INCOMING SHIFT ACCORDINGLY.
--- NOTE | 2019-05-10 20:00 | NUR ---
ASLEEP,REPOSITIONED FOR COMFORT,HAVING DIFFICULTY OF TAKING MEDICINES,HAD TO CRUSH MEDICINES,.SITTER AT BEDSIDE SLEPT MOST OF THE NIGHT.
[2019-05-10] MEDS: OLANZAPINE 5 MG TABLET PO SCH (20:59)
--- NOTE | 2019-05-11 06:54 | NUR ---
SLEPT 12 HOURS
[2019-05-11 08:00] VITALS: BP 101/53
[2019-05-11] MEDS: CLOPIDOGREL 75 MG TABLET PO SCH (08:21)
[2019-05-11] MEDS: NITROFURANTOIN/NITROFURAN MAC 100 MG CAPSULE PO SCH (08:21)
[2019-05-11] MEDS: TIMOLOL MALEATE 0.5% OPHT DROP 5 ML BOTTLE EACHEYE SCH ×2 (08:21→16:52)
[2019-05-11] MEDS: prednisoLONE ACET 1% OPHT DROP 5 ML BOTTLE EACHEYE SCH ×2 (08:21→20:49)
[2019-05-11] MEDS: OLANZAPINE 2.5 MG TABLET PO SCH (08:21)
[2019-05-11] MEDS: ASPIRIN EC 81 MG TABLET.DR PO SCH (08:21)
[2019-05-11] MEDS: RANOLAZINE 500 MG TAB.ER.12H PO SCH ×2 (08:22→17:01)
[2019-05-11] MEDS: DORZOLAMIDE 2% OPHT DROP 10 ML BOTTLE EACHEYE SCH (08:22)
[2019-05-11] MEDS: NIFEdipine XL 60 MG TABSR PO SCH (08:28)
[2019-05-11] MEDS: METOPROLOL SUCCINATE XL 50 MG TAB.SR.24H PO SCH (08:29)
[2019-05-11 15:15] VITALS: BP 125/53
[2019-05-11] MEDS: LORAZEPAM 0.5 MG TABLET PO PRN (16:52)
[2019-05-11 20:22] VITALS: BP 105/46
[2019-05-11] MEDS: OLANZAPINE 5 MG TABLET PO SCH (20:48)
[2019-05-12] MEDS: DORZOLAMIDE 2% OPHT DROP 10 ML BOTTLE EACHEYE SCH (08:23)
[2019-05-12] MEDS: prednisoLONE ACET 1% OPHT DROP 5 ML BOTTLE EACHEYE SCH ×2 (08:23→21:36)
[2019-05-12] MEDS: TIMOLOL MALEATE 0.5% OPHT DROP 5 ML BOTTLE EACHEYE SCH ×2 (08:23→17:14)
[2019-05-12] MEDS: ASPIRIN EC 81 MG TABLET.DR PO SCH (08:24)
[2019-05-12] MEDS: OLANZAPINE 2.5 MG TABLET PO SCH (08:24)
[2019-05-12] MEDS: CLOPIDOGREL 75 MG TABLET PO SCH (08:24)
[2019-05-12] MEDS: RANOLAZINE 500 MG TAB.ER.12H PO SCH ×2 (08:24→17:14)
[2019-05-12] MEDS: NIFEdipine XL 60 MG TABSR PO SCH (08:26)
[2019-05-12] MEDS: METOPROLOL SUCCINATE XL 50 MG TAB.SR.24H PO SCH (08:29)
--- NOTE | 2019-05-12 12:42 | NUR ---
Social Work Note: plate put in worker was called that the [facility] department wanted to meet with manager social responsibility in regards to patients APS report. [facility] department wanted to meet with patient to ask her questions in regards to her well-being. This senior writer was with TANNA Sullivan while being asked questions in regards to patients placement. Case found: None criminal. Station: [facility]. Report Number [id number]. Classification of Incident: 368 P.C. Date: 05/12/19. DepElva SINGH #[id number]. DepElva ENCARNACION #[id number].
--- NOTE | 2019-05-12 16:28 | NUR ---
Social Work Note/Coordination of Care: farmworker machine contacted Nona from [facility] ([phone]) and sent [facility] psychiatric notes and progress notes. Per Nona, she is accepted and will receive services upon discharge.
[2019-05-12 20:00] VITALS: BP 102/45
[2019-05-12] MEDS: OLANZAPINE 5 MG TABLET PO SCH (21:36)
--- NOTE | 2019-05-13 08:00 | NUR ---
Social Work Note/Discharge: Patient will be discharged home to [address] , [place] [address]; ([phone]). Patients son Piter ([phone]) will sisal picker patient at 12PM. Per Piter, he is aware and agreeable to patients discharge. Upon discharge, patient appear to be calm, cooperative and happy to be going home. Patient denies suicidal and homicidal ideation. Patient will follow up with Dr. Ford (cider press operator) at [address], [place] [address]; ([phone]) on May 19 at 2:15PM and will follow up with a psychiatrist at [facility] [address] [place] [address] ([phone]) and scheduled an appointment for patient for May 16 at 8AM for an intake psychiatrist evaluation and will be assigned a (psychiatrist) after evaluation. service worker spoke to Nona ([phone]) scheduled home health services through [facility] [address] [place] [address], [address], [place] [address] and a nurse will be sent to evaluate patient on 05/15/19.Patient was provided with outpatient mental health resources to [facility] Crisis Line , and the National Suicide Prevention Lifeline . Patient presented with euthymic mood and congruent affect.
--- NOTE | 2019-05-13 08:02 | NUR ---
Social Work Note/Firearms Report: Home Care Chaplain completed and submitted a [employer] firearms report for 5250 grave disability certification. A copy of report has been placed in patient chart.
[2019-05-13] MEDS: ASPIRIN EC 81 MG TABLET.DR PO SCH (08:43)
[2019-05-13] MEDS: prednisoLONE ACET 1% OPHT DROP 5 ML BOTTLE EACHEYE SCH (08:44)
[2019-05-13] MEDS: DORZOLAMIDE 2% OPHT DROP 10 ML BOTTLE EACHEYE SCH (08:45)
[2019-05-13] MEDS: TIMOLOL MALEATE 0.5% OPHT DROP 5 ML BOTTLE EACHEYE SCH (08:45)
[2019-05-13] MEDS: CLOPIDOGREL 75 MG TABLET PO SCH (08:45)
[2019-05-13] MEDS: RANOLAZINE 500 MG TAB.ER.12H PO SCH (08:45)
[2019-05-13] MEDS: OLANZAPINE 2.5 MG TABLET PO SCH (08:46)
[2019-05-13] MEDS: METOPROLOL SUCCINATE XL 50 MG TAB.SR.24H PO SCH (08:50)
[2019-05-13] MEDS: NIFEdipine XL 60 MG TABSR PO SCH (08:50)
[2019-05-13 11:35] VITALS: BP 112/66
--- NOTE | 2019-05-13 13:00 | NUR ---
Patient was given discharge instructions and son understood plan to follow up with appointments with psychiatrist, City Councilman and Home health services. Patient was taken down by wheel chair with CLINICAL TRIAL ASSOCIATE, and son Ronaldo Javier. All questions answered. ID band removed and belongings accounted for.
== END 2019-05-13 13:00 | disposition home health service (06) | DRG 885 ==
LOC: ER 13:20 → GPS 15:39 → GPSOV3 05-09 19:43
PROVIDERS: ADMIT Psychiatry & Neurology Psychiatry; ATTEND Registered Nurse
DX: F39 Unspecified mood [affective] disorder (principal); N39.0 Urinary tract infection, site not specified; E44.1 Mild protein-calorie malnutrition; Z86.73 Personal history of transient ischemic attack (TIA), and cerebral infarction without residual deficits; F03.90 Unspecified dementia, unspecified severity, without behavioral disturbance, psychotic disturbance, mood disturbance, and anxiety; E78.5 Hyperlipidemia, unspecified; Z79.02 Long term (current) use of antithrombotics/antiplatelets; I25.10 Atherosclerotic heart disease of native coronary artery without angina pectoris; Z79.899 Other long term (current) drug therapy; I95.9 Hypotension, unspecified
CPT/HCPCS: 36415; 83735; 84100; 84443; 85025; 87086; A4663; J2650

== ENCOUNTER 2019-05-03 11:08 | Emergency (ER) | payer MEDICARE, BC ==
[~2019-05-03] VITALS: Ht 165.1 cm; Wt 59.0 kg
[~2019-05-03 11:08] MED LIST changes: -ACET-2154 PO; -ALPHAGAN 0.2% EACHEYE; +DORZ10DR OP; +NIFE60TA83 PO
[2019-05-03] MEDS ORDERED: OLAN5TAB3 PO (11:25)
[2019-05-03] MEDS ORDERED: ASPI-605 PO (11:25)
[2019-05-03] MEDS ORDERED: ZIPR20VI IM (11:25)
--- NOTE | 2019-05-03 11:27 | NUR ---
d/brice pt back to mhu unit via hospital bed in stable condition.
== END 2019-05-03 11:30 | disposition other institution (70) ==
LOC: ER 11:08
DX: R55 Syncope and collapse (principal); I25.10 Atherosclerotic heart disease of native coronary artery without angina pectoris; Z88.0 Allergy status to penicillin; Z88.8 Allergy status to other drugs, medicaments and biological substances; Z79.82 Long term (current) use of aspirin; Z79.899 Other long term (current) drug therapy; Z79.01 Long term (current) use of anticoagulants
CPT/HCPCS: 93005; A4663